=== PATIENT | female | born 1960 | race Caucasian/White ===

== ENCOUNTER 2023-05-05 09:49 | Inpatient (IN) | payer OTHER ==
[~2023-05-05] VITALS: Ht 162.6 cm; Wt 72.7 kg
[2023-05-05 10:23] LABS: CHLORIDE 101 mEq/L (98-107); INDEX HEMOLYSI 1 (1-3); INDEX ICTERIC 1 (1-4); INDEX LIPEMIC 1 (1-3); POTASSIUM 3.6 mEq/L (3.5-5.1); SODIUM 136 mEq/L (136-145)
[2023-05-05 10:25] LABS: INR 1.2
[2023-05-05 10:33] LABS: ALANINE AMINOTRANSFERASE 23 IU/L (13-61); ALBUMIN 2.5 g/dL (3.4-5.0); ASPARTATE AMINOTRANSFERASE 30 IU/L (15-37); BILIRUBIN TOTAL 1.6 mg/dL (0.1-1.0); CALCIUM 8.8 mg/dL (8.5-10.1); CARBON DIOXIDE 29 mEq/L (21-32); CREATININE 1.1 mg/dL (0.6-1.3); GLUCOSE 216 mg/dL (70-105); PROTEIN TOTAL 6.8 g/dL (6.0-8.3); UREA NITROGEN BLOOD 19 mg/dL (7-21)
[2023-05-05 10:50] LABS: BASOPHILS % 0.8 % (0.0-2.0); EOSINOPHILS % 0.1 % (0.0-5.0); HEMATOCRIT. 27.4 % (36.0-48.0); HEMOGLOBIN. 9.6 g/dL (12.0-16.0); LYMPHOCYTES % 8.4 % (20.0-50.0); MEAN CORPUSCULAR HEMOGLOBIN 33.2 pg (28.0-32.0); MEAN CORPUSCULAR VOLUME 94.4 fL (81.0-99.0); MEAN PLATELET VOLUME 6.4 fl (7.4-10.4); MONOCYTES % 3.5 % (2.0-8.0); NEUTROPHILS % 87.2 % (40.0-76.0); PLATELET 209 x1000/uL (130-400); RED BLOOD CELL COUNT 2.91 mill/uL (4.2-5.4); RED CELL DISTRIBUTION WIDTH 15.9 % (11.6-14.6); WHITE BLOOD COUNT 11.7 x1000/uL (4.5-11.0)
[2023-05-05 10:51] LABS: MEAN CORPUSCULAR HGB CONC 35.1 g/dL (31.0-37.0)
[2023-05-05 10:55] LABS: TROPONIN I HIGH SENSITIVITY 252 ng/L (<54)
[2023-05-05] MEDS: MULTIVITAMINS,THER W-MINERALS TABLET PO SCH (16:00)
[2023-05-05] MEDS ORDERED: TRAMADOL 50MG TABLET PO PRN ×2 (16:00)
[2023-05-05] MEDS: DEXT 5%/0.45% NACL 1000ML 1,000 ML IV SCH (16:00)
[2023-05-05] MEDS ORDERED: ONDANSETRON HCL 4MG/2ML INJ IV PRN ×2 (16:00)
[2023-05-05] MEDS ORDERED: ACETAMINOPHEN 325MG TABLET PO PRN ×2 (16:00)
[2023-05-05] MEDS ORDERED: DOCUSATE SODIUM 100MG CAPSULE PO PRN ×2 (16:00)
[2023-05-05] MEDS ORDERED: ENOXAPARIN 40MG/0.4ML SYR SUBCUT SCH (16:00)
[2023-05-05] MEDS ORDERED: CLONIDINE 0.1MG TABLET PO PRN (16:00)
[2023-05-05] MEDS ORDERED: GUAIFENESIN 200MG/10ML SUGAR FREE UDC PO PRN ×2 (16:00)
[2023-05-05] MEDS ORDERED: NALOXONE HCL 0.4MG/ML VIAL IV PRN (16:15)
[2023-05-05 16:39] LABS: INDEX HEMOLYSI 1 (1-3)
[2023-05-05] MEDS: ENOXAPARIN 40MG/0.4ML SYR SUBCUT SCH (17:00)
[2023-05-05 17:09] LABS: VITAMIN B12 SERUM 1406 pg/mL (211-911)
[2023-05-05 21:22] LABS: CLARITY URINE CLOUDY (CLEAR); COLOR URINE DARK YELLOW (YELLOW); GLUCOSE URINE NEGATIVE (NEGATIVE); KETONES URINE TRACE (NEGATIVE); LEUKOCYTE ESTERASE URINE 1+ (NEGATIVE); NITRITE URINE NEGATIVE (NEGATIVE); OCCULT BLOOD URINE 3+ (NEGATIVE); PROTEIN URINE 4+ (NEGATIVE)
[2023-05-05 21:42] LABS: BACTERIA URINE 2+
[2023-05-05 21:43] LABS: RBC URINE 25-50 /hpf (0-2); SQUAMOUS EPITHELIAL CELL URINE 1+ /lpf (RARE/1+)
[2023-05-05] MEDS ORDERED: GABA-529 MT (23:45)
[2023-05-05] MEDS ORDERED: OMEP20CA14 MT (23:49)
[2023-05-05] MEDS ORDERED: FURO20TA4 MT (23:49)
[2023-05-05] MEDS ORDERED: CEFP100T8 MT (23:49)
[2023-05-05] MEDS ORDERED: SPIR50TA5 MT (23:49)
[2023-05-05] MEDS ORDERED: LEVO112T7 MT (23:49)
[2023-05-06] VITALS (7 sets, daily range): BP systolic 132–151; BP diastolic 50–78; PULSE 70–93; RESP 18–20; TEMP 97.7–100.6
[2023-05-06] MEDS ORDERED: DEXTROSE 50% WATER 50ML SYRINGE IV PRN (01:00)
[2023-05-06 01:26] LABS: INDEX HEMOLYSI 1 (1-3)
[2023-05-06 01:28] LABS: AMMONIA 51 uMol/L (<32)
[2023-05-06 01:30] LABS: CREATINE KINASE 209 IU/L (26-192)
[2023-05-06 06:33] LABS: BASOPHILS % 0.8 % (0.0-2.0); EOSINOPHILS % 0.4 % (0.0-5.0); HEMATOCRIT. 27.1 % (36.0-48.0); HEMOGLOBIN. 9.9 g/dL (12.0-16.0); LYMPHOCYTES % 14.7 % (20.0-50.0); MEAN CORPUSCULAR HEMOGLOBIN 34.4 pg (28.0-32.0); MEAN CORPUSCULAR HGB CONC 36.5 g/dL (31.0-37.0); MEAN CORPUSCULAR VOLUME 94.2 fL (81.0-99.0); MEAN PLATELET VOLUME 6.6 fl (7.4-10.4); MONOCYTES % 9.5 % (2.0-8.0); NEUTROPHILS % 74.6 % (40.0-76.0); PLATELET 165 x1000/uL (130-400); RED BLOOD CELL COUNT 2.88 mill/uL (4.2-5.4); RED CELL DISTRIBUTION WIDTH 16.5 % (11.6-14.6); WHITE BLOOD COUNT 8.2 x1000/uL (4.5-11.0)
[2023-05-06] MEDS: HYDROCODONE/ACETAMINOPHEN 5/325MG TABLET PO PRN ×2 (06:34→22:56)
[2023-05-06 06:50] LABS: DIFFERENTIAL COMMENT 1
[2023-05-06 06:51] LABS: CHLORIDE 100 mEq/L (98-107); INDEX HEMOLYSI 1 (1-3); INDEX ICTERIC 1 (1-4); INDEX LIPEMIC 1 (1-3); POTASSIUM 3.3 mEq/L (3.5-5.1); SODIUM 138 mEq/L (136-145)
[2023-05-06] MEDS: BLOOD SUGAR DIAGNOSTIC STRIP TEST SCH ×4 (06:52→20:33)
[2023-05-06 07:09] LABS: ALANINE AMINOTRANSFERASE 17 IU/L (13-61); ALBUMIN 2.3 g/dL (3.4-5.0); ASPARTATE AMINOTRANSFERASE 32 IU/L (15-37); BILIRUBIN TOTAL 1.3 mg/dL (0.1-1.0); CALCIUM 8.4 mg/dL (8.5-10.1); CARBON DIOXIDE 31 mEq/L (21-32); CHOLESTEROL 110 mg/dL (<200); CREATINE KINASE 160 IU/L (26-192); GLUCOSE 282 mg/dL (70-105); HDL CHOLESTEROL 23 mg/dL (40-59); LDL CHOLESTEROL 75 mg/dL (5-100); PROTEIN TOTAL 6.5 g/dL (6.0-8.3); T4 FREE 1.31 ng/dL (0.76-1.46); THYROID STIMULATING HORMONE 0.61 uIU/mL (0.36-3.74); TRIGLYCERIDE 100 mg/dL (0-150); UREA NITROGEN BLOOD 24 mg/dL (7-21)
[2023-05-06] MEDS: ASPIRIN 81MG EC TABLET PO SCH (08:29)
[2023-05-06] MEDS: INSULIN LISPRO 100 UNITS/ML SUBCUT SCH ×4 (08:29→20:33)
[2023-05-06] MEDS: DEXT 5%/0.45% NACL 1000ML 1,000 ML IV SCH (08:31)
[2023-05-06] MEDS: MULTIVITAMINS,THER W-MINERALS TABLET PO SCH (08:33)
[2023-05-06] MEDS ORDERED: CEFTRIAXONE 1GM PREMIX 50 ML IV SCH (11:30)
[2023-05-06] MEDS: SPIRONOLACTONE 50MG TABLET PO SCH (11:48)
[2023-05-06] MEDS: FUROSEMIDE 20MG TABLET PO SCH (11:48)
[2023-05-06] MEDS: GABAPENTIN 100MG CAPSULE PO SCH ×3 (11:48→16:28)
[2023-05-06] MEDS: LEVOTHYROXINE SODIUM 112MCG TABLET PO SCH (11:49)
[2023-05-06] MEDS: OMEPRAZOLE 20MG CAPSULE EXTENDED RELEASE PO SCH (11:49)
[2023-05-06] MEDS: CEFTRIAXONE 1,000 MG in DEXTROSE 5% WATER 50 ML IV SCH (13:04)
[2023-05-06] MEDS: LACTULOSE 20G/30ML UDC PO SCH ×2 (13:05→21:40)
[2023-05-06] MEDS: ENOXAPARIN 40MG/0.4ML SYR SUBCUT SCH (16:27)
[2023-05-07] VITALS: BP 140/62; PULSE 78; RESP 20; TEMP 97.9
[2023-05-07] MEDS: DEXT 5%/0.45% NACL 1000ML 1,000 ML IV SCH (02:08)
[2023-05-07 04:00] VITALS: BP 133/56; PULSE 72; RESP 18; TEMP 97.7
[2023-05-07] MEDS: INSULIN LISPRO 100 UNITS/ML SUBCUT SCH ×2 (06:12→13:23)
[2023-05-07] MEDS: LACTULOSE 20G/30ML UDC PO SCH ×2 (06:14→13:19)
[2023-05-07] MEDS: BLOOD SUGAR DIAGNOSTIC STRIP TEST SCH ×2 (06:23→12:17)
[2023-05-07 06:24] LABS: INDEX HEMOLYSI 1 (1-3)
[2023-05-07 06:26] LABS: AMMONIA 49 uMol/L (<32)
[2023-05-07 06:30] LABS: CHLORIDE 99 mEq/L (98-107); INDEX HEMOLYSI 1 (1-3); INDEX ICTERIC 1 (1-4); INDEX LIPEMIC 1 (1-3); POTASSIUM 3.5 mEq/L (3.5-5.1); SODIUM 135 mEq/L (136-145)
[2023-05-07 06:45] LABS: ALANINE AMINOTRANSFERASE 19 IU/L (13-61); ALBUMIN 2.2 g/dL (3.4-5.0); ASPARTATE AMINOTRANSFERASE 28 IU/L (15-37); BILIRUBIN TOTAL 1.3 mg/dL (0.1-1.0); CARBON DIOXIDE 33 mEq/L (21-32); GLUCOSE 257 mg/dL (70-105); PROTEIN TOTAL 6.3 g/dL (6.0-8.3); UREA NITROGEN BLOOD 22 mg/dL (7-21)
[2023-05-07 08:00] VITALS: BP 142/61; PULSE 73; RESP 18; TEMP 96.9
[2023-05-07 08:26] LABS: BASOPHILS % 2.4 % (0.0-2.0); HEMATOCRIT. 25.8 % (36.0-48.0); HEMOGLOBIN. 9.2 g/dL (12.0-16.0); LYMPHOCYTES % 28.8 % (20.0-50.0); MEAN CORPUSCULAR HEMOGLOBIN 33.4 pg (28.0-32.0); MEAN CORPUSCULAR HGB CONC 35.5 g/dL (31.0-37.0); MEAN CORPUSCULAR VOLUME 94.1 fL (81.0-99.0); MONOCYTES % 11.8 % (2.0-8.0); PLATELET 161 x1000/uL (130-400); RED BLOOD CELL COUNT 2.74 mill/uL (4.2-5.4); WHITE BLOOD COUNT 7.6 x1000/uL (4.5-11.0)
[2023-05-07] MEDS: OMEPRAZOLE 20MG CAPSULE EXTENDED RELEASE PO SCH (09:21)
[2023-05-07] MEDS: LEVOTHYROXINE SODIUM 112MCG TABLET PO SCH (09:21)
[2023-05-07] MEDS: ASPIRIN 81MG EC TABLET PO SCH (09:21)
[2023-05-07] MEDS: FUROSEMIDE 20MG TABLET PO SCH (09:21)
[2023-05-07] MEDS: GABAPENTIN 100MG CAPSULE PO SCH ×2 (09:21→13:19)
[2023-05-07] MEDS: MULTIVITAMINS,THER W-MINERALS TABLET PO SCH (09:21)
[2023-05-07] MEDS: SPIRONOLACTONE 50MG TABLET PO SCH (09:21)
[2023-05-07] MEDS: HYDROCODONE/ACETAMINOPHEN 5/325MG TABLET PO PRN ×2 (09:29→13:23)
[2023-05-07] MEDS: CEFTRIAXONE 1,000 MG in DEXTROSE 5% WATER 50 ML IV SCH (13:00)
[2023-05-07 15:24] VITALS: BP 125/53; PULSE 73; TEMP 97.4; O2SAT 98
[2023-05-07] MEDS ORDERED: *PATIENT'S OWN MEDICATION STORAGE XX SCH (16:30)
[2023-05-08] MEDS ORDERED: FAMOTIDINE 20MG TABLET PO SCH (09:00)
== END 2023-05-07 16:20 | disposition home or self-care (01) | DRG 689 ==
LOC: ER 10:00 → 7WST 13:32 → EDBEDREQTM 13:34 → EDBEDREQ 13:34
PROVIDERS: ADMIT Hospitalist; ATTEND Hospitalist
DX: N39.0 Urinary tract infection, site not specified (principal); G93.41 Metabolic encephalopathy; I21.4 Non-ST elevation (NSTEMI) myocardial infarction; K76.82 Hepatic encephalopathy; K74.60 Unspecified cirrhosis of liver; E11.40 Type 2 diabetes mellitus with diabetic neuropathy, unspecified; D63.8 Anemia in other chronic diseases classified elsewhere; E03.9 Hypothyroidism, unspecified; Z87.440 Personal history of urinary (tract) infections
CPT/HCPCS: 36415; 71045; 80053; 80061; 81003; 82140; 82550; 82607; 82962; 83036; 83605; 84145; 84439; 84443; 84484; 85025; 93005; 93970; 99285; A6261; J0696; J1650; J1815; J7060